=== PATIENT | female | born 1960 | race Caucasian/White ===

== ENCOUNTER → 2018-07-22 12:39 | Outpatient (CLI) | payer OTHER, SELFPAY ==
[2018-07-22 12:59] LABS: Add Manual Diff / Slide Review NO; Basophils Absolute Auto 100 /uL (0-100); Basophils Percent Auto 1.1 % (0-2); Eosinophils Absolute Auto 400 /uL (0-450); Eosinophils Percent Auto 6.8 % (2-4); Hematocrit 39.8 % (36-46); Hemoglobin 13.7 g/dL (12.0-16.0); Lymphocytes Absolute Auto 1600 /uL (1100-4500); Lymphocytes Percent Auto 30.2 % (25-40); Mean Corpuscular HGB Conc 34.4 % (30-36); Mean Corpuscular Hemoglobin 32.3 PG (26-34); Mean Corpuscular Volume 93.7 fL (80-100); Monocytes Absolute Auto 300 /uL (0-900); Monocytes Percent Auto 5.6 % (3-14); Neutrophils Absolute Auto 3100 /uL (1500-7000); Neutrophils Percent Auto 56.3 % (50-75); Platelet Count 189 X10^3/uL (150-400); Red Blood Cell Count 4.24 X10^6/uL (4.0-5.2); Red Cell Distribution Width 12.3 % (11.6-14.8); White Blood Cell Count 5.4 X10^3/uL (4.5-11.0)
[2018-07-22 13:39] LABS: Alanine Aminotransferase 33 IU/L (9-52); Albumin 4.5 g/dL (3.5-5.0); Albumin Globulin Ratio 1.6 (1.0-2.8); Alkaline Phosphatase 68 U/L (38-126); Aspartate Aminotransferase 26 IU/L (14-36); BUN Creatinine Ratio 21.7 (6-22); Bilirubin Total 0.8 mg/dL (0.2-1.3); Blood Urea Nitrogen 13 mg/dL (7-17); Calcium 9.6 mg/dL (8.4-10.2); Carbon Dioxide 29 mmol/L (22-32); Chloride 98 mmol/L (98-107); Estimated Glomerular Filt Rate > 60.0 mL/min (>60); Globulin 2.8 g/dL (1.7-4.1); Glucose 90 mg/dL (70-100); HEMOLYSIS < 15 (0-50); Potassium 4.1 mmol/L (3.4-5.1); Sodium 137 mmol/L (137-145); Total Protein 7.3 g/dL (6.3-8.2)
== END ==
PROVIDERS: Family Provider Family Medicine; PCP Family Medicine; Visit Provider Physician Assistant
DX: R10.9 Unspecified abdominal pain (principal)
CPT/HCPCS: 80053; 85025; 87077; 87086; 87186

== ENCOUNTER → 2018-07-23 14:32 | Outpatient (CLI) | payer OTHER, SELFPAY ==
--- NOTE | 2018-07-23 14:35 | DI.US.S_ITS ---
PROCEDURE: US ABDOMEN COMPLETE INDICATIONS: abdominal pain TECHNIQUE: Real-time scanning was performed of the abdominal and retroperitoneal organs, with image documentation. COMPARISON: None. FINDINGS: Liver: Liver is normal in size and homogeneous in echotexture. Gallbladder: Gallbladder is within normal limits. Biliary ducts: Intrahepatic bile ducts are non-dilated. Extrahepatic bile duct caliber measures 3.7 mm. Normal is 6-7 mm or less in diameter, or 10 mm or less post-cholecystectomy. Pancreas: Visualized portions of the pancreas are sonographically normal. Spleen: Spleen is normal in size and homogeneous in echotexture. Kidneys: Kidneys are normal in size and echotexture. Right kidney measures 10 cm long; left kidney measures 10 cm long. No hydronephrosis or nephrolithiasis. No solid masses. Aorta: Visualized aorta is normal in caliber at less than 3 cm. Iliacs: Proximal common iliac arteries are normal in caliber at less than 2.5 cm. IVC: Intrahepatic inferior vena cava is patent. Miscellaneous: No free abdominal fluid. IMPRESSION: No finding to explain patient's symptoms. Dictated by: Randal Cardenas M.D. on 07/23/2018 at 16:00 Approved by: Randal Cardenas M.D. on 07/23/2018 at 16:01
== END ==
PROVIDERS: PCP Family Medicine; Visit Provider Physician Assistant
DX: R10.9 Unspecified abdominal pain (principal)
CPT/HCPCS: 76700

== ENCOUNTER → 2018-12-11 11:11 | Outpatient (CLI) | payer OTHER, SELFPAY ==
[2018-12-11 12:25] LABS: Cholesterol 231 mg/dL (140-199); Glucose 89 mg/dL (70-100); HDL Cholesterol 100 mg/dL (40-60); LDL Cholesterol Calculated 117 mg/dL (<100); Triglycerides 68 mg/dL (35-150)
== END ==
PROVIDERS: PCP Family Medicine; Visit Provider Family Medicine
DX: Z13.220 Encounter for screening for lipoid disorders (principal); Z13.1 Encounter for screening for diabetes mellitus
CPT/HCPCS: 36415; 80061; 82947

== ENCOUNTER → 2018-12-19 16:12 | Outpatient (CLI) | payer OTHER, SELFPAY ==
--- NOTE | 2018-12-19 16:13 | DI.MG.S_ITS ---
BILATERAL DIGITAL SCREENING MAMMOGRAM 3D/2D WITH CAD: 12/19/2018 CLINICAL: Routine screening. Comparison is made to exam dated: 04/17/2015 [facility]. The tissue of both breasts is extremely dense, which lowers the sensitivity of mammography. Current study was also evaluated with a Computer Aided Detection (CAD) system. No significant masses, calcifications, or other findings are seen in either breast. There has been no significant interval change. IMPRESSION: NEGATIVE There is no mammographic evidence of malignancy. A 1 year screening mammogram is recommended. This exam was interpreted at Station ID: [id number]. NOTE: For mammograms, a report in lay terms will be sent to the patient. Approximately 15% of breast malignancies will not be visualized mammographically. In the management of a palpable breast mass, a negative mammogram must not discourage biopsy of a clinically suspicious lesion. Electronically Signed By: Christo white/twan:12/19/2018 18:56:39 letter sent: Normal Exam ACR BI-RADS Category 1: Negative [id number]
== END ==
PROVIDERS: PCP Family Medicine; Visit Provider Family Medicine
DX: Z12.31 Encounter for screening mammogram for malignant neoplasm of breast (principal)
CPT/HCPCS: 77063; 77067

== ENCOUNTER → 2020-05-07 12:35 | Outpatient (CLI) | payer OTHER, SELFPAY ==
[2020-05-07] MEDS: COVID-19 VACC #1, MRNA(MOD) 100 MCG/0.5 ML VIAL IM (12:43)
== END ==
PROVIDERS: PCP Family Medicine; Visit Provider Internal Medicine
DX: Z23 Encounter for immunization (principal)
CPT/HCPCS: 0011A; 91301

== ENCOUNTER → 2020-06-04 12:27 | Outpatient (CLI) | payer OTHER, SELFPAY ==
[2020-06-04] MEDS: COVID-19 VACC #2, MRNA(MOD) 100 MCG/0.5 ML VIAL IM (12:38)
== END ==
PROVIDERS: PCP Family Medicine; Visit Provider Internal Medicine
DX: Z23 Encounter for immunization (principal)
CPT/HCPCS: 0012A; 91301

== ENCOUNTER → 2020-07-30 11:52 | Outpatient (CLI) | payer OTHER, SELFPAY ==
[2020-07-30 12:24] LABS: COVID19 -Nasal RAPID Negative (Negative)
== END ==
PROVIDERS: PCP Family Medicine; Visit Provider Specialist
DX: Z20.822 Contact with and (suspected) exposure to COVID-19 (principal)
CPT/HCPCS: 87635; C9803

== ENCOUNTER 2020-07-31 08:14 | Day surgery (SDC) | payer OTHER, SELFPAY ==
[2020-07-31] VITALS (9 sets, daily range): BP systolic 104–123; BP diastolic 58–79; PULSE 56–72; RESP 10–17; TEMP 36.2–37.1; O2SAT 98–100; BMI 19.5
[2020-07-31] MEDS: LACTATED RINGERS 1,000 ML 200 ML IV (08:58)
--- NOTE | 2020-07-31 09:03 | PM.HP.1 ---
History of Present Illness History of Present Illness Date Patient Seen: 07/31/20 Time Patient Seen: 09:03 Chief complaint: SDC Narrative: The patient is a woman who has 4 uncles who had had colon cancer. Her last colonoscopy was 5 years ago she believes. She has had polyps removed in the past. Patient History Medical History Anxiety (1992) Chicken pox Chronic headaches Hemorrhoids (1992) Hx of dysmenorrhea (2009) Kidney stones (2008) Migraines (2002) MRSA infection (2011) Surgical History Anesthesia History of endometrial ablation (2011) History of umbilical hernia repair (2000) History of umbilical hernia repair (1999) Status post colonoscopy (2009) Family & Social History Family History Brother Cancer Heart disease Hypertension High cholesterol Hodgkin's disease Heart attack Father Age: 94 Colorectal cancer Heart disease Hypertension High cholesterol Mental health problem Stroke Melanoma Grandfather Heart disease Hypertension Heart attack Grandmother Hypertension Mental health problem Alzheimer's disease Mother Hypertension Dementia Stroke Mental health problem Alzheimer's disease Grandfather Heart disease Hypertension Mental health problem Heart attack Grandmother Hypertension Mental health problem Alzheimer's disease Family/Other Colorectal cancer Family/Other Colorectal cancer Family/Other Colorectal cancer Family/Other Colorectal cancer Social History: household members significant other caregiver/support person No Tobacco & Substance use: Smoking Status Never smoker alcohol intake current alcohol intake frequency a few times a week Substance Use Type does not use Meds Home Medications and Allergies Home Medications Medication Instructions Recorded Confirmed Type sertraline 100 mg tablet See Rx Instructions .ROUTE 04/24/20 07/31/20 Rx .COMPLEX #90 tab Allergies Allergy/AdvReac Type Severity Reaction Status Date / Time Penicillins [PENICILLINS] Allergy Unknown Verified 08/14/18 08:30 Review of Systems Review of Systems ROS: Yes All systems reviewed with the patient and are negative except as otherwise documented Exam Vital Signs (past 8 hours): - 07/31/20 08:39 Temperature 97.1 F L Pulse Rate 72 Respiratory Rate 16 Blood Pressure 117/79 Pulse Oximetry 100 Oxygen Delivery Method Room Air Oxygen Flow Rate 0 Narrative Exam Narrative: Pleasant cooperative patient no apparent distress. Lungs are clear to auscultation. No rales or rhonchi. Heart regular rate and rhythm no murmur gallop. Abdomen is soft nontender without mass. No obvious hernias. Patient is alert and oriented x3. Assessment & Plan Assessment & Plan narrative: The patient for a screening colonoscopy. I have discussed the procedure with them. Risks of bleeding, perforation which would necessitate major operation, failure to find remove all lesions, the potential tattoo were all discussed. All questions were answered. They wished to proceed.
--- NOTE | 2020-07-31 09:05 | PM.PREOP ---
Pre-operative Note COVID-19 COVID-19 status: Negative Result date/Date tested (Pos, Neg/Pending): 07/30/20 Interval Note History & Physical reviewed/Exam performed by Physician: Yes Changes to H&P: No ASA Class (for procedural sedation): I
[2020-07-31] MEDS: ONDANSETRON 4 MG/2 ML INJ IV (09:17)
[2020-07-31] MEDS: fentaNYL 250 MCG/5 ML INJ IV (09:43)
[2020-07-31] MEDS: MIDAZOLAM 5 MG/5 ML VIAL IV (09:43)
--- NOTE | 2020-07-31 10:03 | PM.OP.ENDO ---
Operative Date/Time/Diagnoses Date of procedure: 07/31/20 Time of procedure: 10:03 Pre-op diagnosis: Family history of colon cancer. Personal history of polyps. Post-op diagnosis: same Procedure & Clinicians Study performed: Colonoscopy Same procedure as scheduled: Yes Indications: Surveillance in a high risk patient. Last exam 5 years ago. Surgeon: Hermann George Procedure Notes SCOAP/Timeout: Performed Procedure in detail: The patient was placed in the left lateral decubitus position and underwent IV sedation directed by the surgeon consisting of fentanyl and Versed. Digital exam was unremarkable. The scope was inserted and advanced through the rectum into the sigmoid, descending, transverse, and ascending colon. To make my way through the colon I had to reposition the patient multiple times apply pressure in insert a stiffener.. The cecum was reached identified by the ileocecal valve and the appendiceal opening. The ileocecal valve was successfully cannulated. The terminal ileum was normal in appearance. The scope was gradually brought out. No Polyps were found . The scope ultimately was retroflexed in the rectum. The appearance was remarkable for internal hemorrhoids without ulceration. They would probably benefit from banding if the patient so desired.. The scope was removed and the patient tolerated the procedure well. Scope withdrawal time: 7 minutes Sedation minutes: 42 Findings: other findings (Very elongated redundant colon) Specimen(s): none sent Complications: none Post-procedure Recommendations: Colonscopy in 5 years Follow up: as needed Disposition: PACU
== END 2020-07-31 11:03 | disposition home or self-care (01) ==
PROVIDERS: PCP Family Medicine; Referring Provider Family Medicine; Visit Provider Specialist
PROC: 0DJD8ZZ Inspection of Lower Intestinal Tract, Via Natural or Artificial Opening Endoscopic (ICD-10-PCS; CPT 45378; principal; 2020-07-31 09:15)
DX: Z12.11 Encounter for screening for malignant neoplasm of colon (principal); Z86.010 Personal history of colon polyps; Z80.0 Family history of malignant neoplasm of digestive organs
CPT/HCPCS: 45378; 99152; 99153; J2250; J2405; J3010